=== PATIENT | male | born 1960 | race Caucasian/White ===

== ENCOUNTER 2023-10-12 06:52 | Day surgery (SDC) | payer BC ==
[2023-10-12] MEDS ORDERED: Midazolam 1 MG/ML 2 ML SDV ONE (07:13)
[2023-10-12] MEDS ORDERED: Propofol 200 MG/20 ML SDV ONE (07:13)
[2023-10-12] MEDS ORDERED: fentaNYL 50 MCG/ML SDV ONE (07:13)
[2023-10-12] MEDS: Lactated Ringers 1,000 ML IV SCH (07:57)
== END 2023-10-12 10:03 | disposition home or self-care (01) ==
LOC: JP.SDS 06:52
PROVIDERS: ATTEND Family Medicine
DX: Z12.11 Encounter for screening for malignant neoplasm of colon (principal); D12.2 Benign neoplasm of ascending colon; I25.10 Atherosclerotic heart disease of native coronary artery without angina pectoris; E78.5 Hyperlipidemia, unspecified; R73.03 Prediabetes; Z79.899 Other long term (current) drug therapy
CPT/HCPCS: 45380; 88305; J2250; J2704; J3010; J7120